=== PATIENT | male | born 2000 | race African-American/Black ===

== ENCOUNTER 2021-07-20 19:24 | Emergency (ER) | payer OTHER, SELFPAY ==
--- NOTE | ~2021-07-20 | CT_ITS ---
EXAMINATION: CT abdomen pelvis w con DATE: 07/20/2021 22:09 INDICATION: Abdominal pain for 3 days TECHNIQUE: Computed tomography (CT) of the abdomen and pelvis was performed with 100 CC Omnipaque 350 intravenous contrast. Automated exposure control and iterative reconstruction technique were employe d. Exam dose: 229.65 mGy-cm total exam DLP. COMPARISON: None. FINDINGS: The lung bases are clear. Normal heart size. No pericardial or pleural effusion. The gallbladder is contracted. No hepatic, splenic, pancreatic, and adrenal or renal space-occupying mass lesion. No bile duct or pancreatic duct dilatation. No urinary tract calculus or hydroureteronephrosis is detected. The urinary bladder is unremarkable. Normal caliber of the abdominal aorta. No intraperitoneal or retroperitoneal or pelvic mass lesion or adenopathy or ascites. The stomach is distended with fluid and foodstuff. Normal appendix. No bowel obstruction or intraperi toneal free air. Included skeletal structures are unremarkable. IMPRESSION: No significant abnormality Reviewed, dictated and finalized at [facility]. Reviewed, dictated and finalized at [facility]. IMPRESSION: No significant abnormality
[2021-07-20 19:28] VITALS: BP 141/88; PULSE 77; RESP 18; TEMP 37.2; O2SAT 99
[2021-07-20 20:36] LABS: Basophils Percent Auto 0.4 % (0.2-1.2); Eosinophils Absolute Auto 0.2 K/mm3 (0-0.3); Eosinophils Percent Auto 3.9 % (0-4.4); Hematocrit 46.3 % (42.0-52.0); Hemoglobin 14.8 g/dL (14.0-18.0); Immature Granulocyte Absolute 0.01 K/mm3 (0.00-0.031); Immature Granulocyte Percent A 0.2 % (0-0.5); Lymphocytes Absolute Auto 2.51 K/mm3 (0.9-3.2); Lymphocytes Percent Auto 47.2 % (18.3-44.2); Mean Corpuscular Hemoglobin 27.4 pg (26-34); Mean Corpuscular Volume 85.6 fl (80-100); Mean Platelet Volume 9.9 fl (7.4-10.4); Monocytes Absolute Auto 0.4 K/mm3 (0.1-0.6); Monocytes Percent Auto 7.3 % (2.6-8.5); Neutrophils Absolute Auto 2.2 K/mm3 (1.3-6.7); Platelet Count Result 281 k/mm3 (150-375); Red Blood Count 5.41 M/mm3 (4.6-6.20); Red Cell Distribution Width 13.2 % (11.5-14.5); White Blood Count 5.3 K/mm3 (4.5-10.0)
[2021-07-20 20:46] LABS: Alanine Aminotransferase 20 U/L (4-50); Albumin Level 4.5 g/dL (3.5-5.1); Alkaline Phosphatase 92 U/L (38-126); Anion Gap 9 mmol/L (8-16); Aspartate Amino Transferase 45 U/L (17-59); Bilirubin,Total 0.2 mg/dL (0.2-1.3); Blood Urea Nitrogen 6 mg/dL (9-20); Calcium 8.2 mg/dL (8.4-10.2); Carbon Dioxide 24 mmol/L (22-30); Chloride 106 mmol/L (98-107); Estimated CRCL calculation 99 ml/min; Estimated Glomerular Filt Rate > 60; Glucose 130 mg/dL (65-110); Lipase 88 U/L (23-300); Sodium 139 mmol/L (137-145)
--- NOTE | 2021-07-20 21:39 | ED.GENADULT ---
HPI - General Adult General Chief complaint: Abdominal Pain Stated complaint: Abd pain Time Seen by Provider: 07/20/21 20:46 Source: RN notes reviewed History of Present Illness HPI narrative: Patient presents emergency room from home for abdominal pain. Patient states pain began approximately 3 days ago the pain was initially located diffusely throughout the abdomen described as crampy is now located in the lower abdomen described as sharp and stabbing. States nothing makes pain better or worse. He denies any fevers or chills, chest pain, shortness of breath, nausea, vomiting, diarrhea or any other symptoms. States he not taking medication for the pain today Related Data Allergies Allergy/AdvReac Type Severity Reaction Status Date / Time pollen extracts Allergy Unknown Verified 07/20/21 19:25 Review of Systems Review of Systems: Gen.: Denies fevers or chills ENT: Denies congestion Respiratory: Denies shortness of breath or cough CV: Denies chest pain or palpitations GI: See HPI Musculoskeletal: Denies back pain or muscle pain Neuro: Denies numbness, tingling, weakness or focal weakness Skin: Denies rash Except as documented, all other systems reviewed and negative [facility] Past Medical History Medical History (Updated 07/20/21 @ 21:40 by Dheeraj Castillo DO) Patient denies significant medical history Social History Social History (Updated 07/20/21 @ 21:40 by Dheeraj Castillo DO) Smoking status: Never smoker Exam Narrative: APPEARANCE: No acute distress, nontoxic, resting in bed HEENT: Normocephalic, atraumatic, OMM RESPIRATORY: No respiratory distress, clear to auscultation bilaterally with no rhonchi wheezing or rales CARDIOVASCULAR: RRR s murmur ABDOMINAL: Soft nondistended tender palpation right lower quadrant and left lower quadrant no tenderness right upper quadrant left upper quadrant no rebound or guarding MUSCULOSKELETAl: Moves all extremities. No clubbing, cyanosis or edema. NEURO: Awake and alert. Following commands, speech normal, no focal deficits SKIN:: Warm, dry. Normal Color PSYCHIATRIC: Normal affect/mood Course Course Emergency Course: Patient states that they are feeling much better at this time. States abdominal pain has resolved. Repeat abdominal exam shows the patient's abdomen to be soft and nontender. Discussed with patient results of workup and diagnosis. Discussed need for follow-up with primary care physician, reasons to return to the emergency department in proper use of medication. Patient understands and agrees to current treatment plan Vital Signs Vital signs: Vital Signs Temperature 99 F 07/20/21 19:28 Pulse Rate 77 07/20/21 19:28 Respiratory Rate 18 07/20/21 19:28 Blood Pressure 141/88 H 07/20/21 19:28 Pulse Oximetry 99 07/20/21 19:28 Temperature 99 F 07/20/21 19:28 Pulse Rate 77 07/20/21 19:28 Respiratory Rate 18 07/20/21 19:28 Blood Pressure 141/88 H 07/20/21 19:28 Pulse Oximetry 99 07/20/21 19:28 Medical Decision Making MDM Narrative Medical decision making narrative: Patient's abdomen is soft without significant pain or signs of surgical abdomen on serial exams. Lab and x-ray evaluations are reviewed and patient is felt to be a reasonable candidate for outpatient management. Patient was instructed as to limitations of x-ray and laboratory evaluation and encouraged to return to ED or primary physician for repeat exam in 12 hours if continued or worsening pain Vital Signs Vital Signs: Vital Signs Temperature 99 F 07/20/21 19:28 Pulse Rate 77 07/20/21 19:28 Respiratory Rate 18 07/20/21 19:28 Blood Pressure 141/88 H 07/20/21 19:28 Pulse Oximetry 99 07/20/21 19:28 Temperature 99 F 07/20/21 19:28 Pulse Rate 77 07/20/21 19:28 Respiratory Rate 18 07/20/21 19:28 Blood Pressure 141/88 H 07/20/21 19:28 Pulse Oximetry 99 07/20/21 19:28 Lab Data Result diagrams: 07/20/21 20:29 07/20/21 20:
[2021-07-20 22:13] LABS: Appearance Urine Clear (Clear); Bilirubin Urine Negative (Negative); Blood Urine Negative (Negative); Color Urine Yellow (Yellow); Glucose Urine UA Negative (Negative); Ketones Urine Negative (Negative); Leukocyte Esterase Ur Negative LEU/UL (Negative); Nitrate Urine Negative (Negative); Protein Urine Negative (Negative); Specific Grav Ur 1.015 (1.001-1.035); Urobilinogen Urine 0.2 mg/dL (<2.0)
[2021-07-20 22:18] LABS: Add Urine Microscopic? NO; RBC Urine 0-2 /hpf (0-2); WBC Urine 0-3 /hpf
[2021-07-20] MEDS: KETOROLAC 30 MG/ML VIAL (*BKC) IV PUSH (22:24)
[2021-07-20] MEDS: SODIUM CHLORIDE 0.9% IV 1,000 ML 999 ML IV CONT (22:24)
[2021-07-20 23:29] VITALS: BP 128/78; PULSE 68; RESP 16; O2SAT 98
--- NOTE | 2021-07-25 19:32 | PC.NURSE ---
Normal Saline stopped at 7595
== END 2021-07-20 23:31 | disposition home or self-care (01) ==
PROVIDERS: Emergency Medicine; Emergency Provider Emergency Medicine; PCP Internal Medicine Gastroenterology
DX: R10.30 Lower abdominal pain, unspecified (principal)
CPT/HCPCS: 36415; 74177; 80053; 81003; 83690; 85025; 96361; 96374; 99284; J1885; J7030; Q9967

== ENCOUNTER 2022-07-27 08:05 | Emergency (ER) | payer OTHER, SELFPAY ==
--- NOTE | ~2022-07-27 | XR_ITS ---
XR foot LT min 3V 07/27/2022 08:53 INDICATION: Left foot pain PROCEDURE: 4 views left foot COMPARISON: No prior studies for comparison. FINDINGS: Fracture, dislocation or subluxation is not identified. Lisfranc joint is intact. The soft tissues appear within normal limits. No foreign bodies are identified. IMPRESSION: 1: NO ACUTE BONE OR JOINT ABNORMALITY IDENTIFIED. Reviewed, dictated and finalized at [facility].
[2022-07-27 08:08] VITALS: BP 133/76; PULSE 75; RESP 16; TEMP 36.7; O2SAT 100
[2022-07-27] MEDS: ACETAMINOPHEN 500 MG TABLET 1000 MG PO (08:46)
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
[2022-07-27 09:19] VITALS: BP 142/78; PULSE 64; RESP 12; O2SAT 98
== END 2022-07-27 09:20 | disposition home or self-care (01) ==
PROVIDERS: Emergency Provider Emergency Medicine; PCP Internal Medicine Gastroenterology
DX: S06.0X0A Concussion without loss of consciousness, initial encounter (principal); Y00.XXXA Assault by blunt object, initial encounter
CPT/HCPCS: 73630; 99282; A9270

== ENCOUNTER 2022-11-09 20:02 | Emergency (ER) | payer OTHER, SELFPAY ==
--- NOTE | ~2022-11-09 | CT_ITS ---
EXAMINATION: CT brain wo con INDICATION: Head injury COMPARISON: None TECHNIQUE: Standard unenhanced head CT. The dose-length product (DLP) was 605.33 mGy-cm. The mA was a djusted according to patient size. Iterative reconstruction technique was employed. FINDINGS: There is no intracranial hemorrhage, acute infarction, or abnormal mass lesion. The ventric les are normal. There is no abnormal mass effect or midline shift. The gilman-white matter differentiat ion is normal. The basal cisterns are patent. The orbits are normal. There is a 9 mm polyp or mucous retention cyst in the right maxillary sinus. IMPRESSION: 1. No acute intracranial abnormality. Reviewed, dictated and finalized at [facility].
[2022-11-09 20:06] VITALS: BP 144/76; PULSE 68; RESP 15; TEMP 36.9; O2SAT 98
--- NOTE | 2022-11-09 20:45 | ED.HEATRA ---
HPI - Head Injury General Chief complaint: Head Injury Stated complaint: headache/injury Time Seen by Provider: 11/09/22 20:09 History of Present Illness HPI Narrative: 22-year-old male with history of concussion 2 months ago was playing basketball few days ago and hit his head, no loss of consciousness, no nausea or vomiting, he has had a persistent headache since then and also more trouble sleeping. Related Data Allergies Allergy/AdvReac Type Severity Reaction Status Date / Time pollen extracts Allergy Unknown Verified 11/09/22 20:08 Review of Systems Review of Systems: CONST: No fever. HEENT: No sore throat C/V: No chest pain RESP: No cough GI: No nausea or vomiting : No dysuria. M/S: No joint pain. SKIN: No rash. NEURO: Headache without focal numbness or weakness PSYCH: [No depression] [facility] Past Medical History Medical History (Updated 11/09/22 @ 20:46 by Emerald Mesa MD) Patient denies significant medical history Social History Social History (Updated 07/20/21 @ 21:40 by Dheeraj Castillo DO) Smoking status: Never smoker Exam Narrative: EXAMINATION OF ORGAN SYSTEMS/BODY AREAS: Constitutional: Vital signs per nursing GENERAL:[No acute distress, non-toxic appearing.] HEAD: Normal with no signs of head trauma. EYES: EOMI, conjunctiva normal ENT: Hearing grossly intact LUNGS: Nonlabored breathing. HEART: [Regular rate and rhythm] ABD: [Soft], [nontender to palpation] EXT: Normal range of motion SKIN: [No rashes or lesions.] NEURO: [Alert and oriented x 3. No gross focal sensory or strength deficits.] Ambulating with normal steady gait PSYCH: Normal affect Course Vital Signs Vital signs: Vital Signs Temperature 98.4 F 11/09/22 20:06 Pulse Rate 68 11/09/22 20:06 Respiratory Rate 15 11/09/22 20:06 Blood Pressure 144/76 H 11/09/22 20:06 Pulse Oximetry 98 11/09/22 20:06 Oxygen Delivery Room Air 11/09/22 20:06 Temperature 98.4 F 11/09/22 20:06 Pulse Rate 68 11/09/22 20:06 Respiratory Rate 15 11/09/22 20:06 Blood Pressure 144/76 H 11/09/22 20:06 Pulse Oximetry 98 11/09/22 20:06 Oxygen Delivery Room Air 11/09/22 20:06 MDM - Head Injury MDM Narrative Medical decision making narrative: 22-year-old male presenting after head injury, he is well-appearing here, no indication for CT per [place] rules which I discussed with patient but he would like to have a CT head for reassurance so this is ordered. It does not show any acute bleed on my own independent interpretation, I have discussed concussion precautions with the patient and the need to avoid any head injury and provided follow-up to primary. Stable for discharge at this time. Discharge Plan Discharge Clinical Impression: Postconcussion syndrome Patient Disposition: Home, Self-Care Condition: Stable Instructions: Antibiotic Form, Concussion (ED), Post Concussion Syndrome (ED) Additional Instructions: Please follow up with your doctor; you can always return for any further issues. You can continue taking ibuprofen and Tylenol as needed for headache. Prescriptions: No Action famotidine [Pepcid] 20 mg tablet 20 mg PO DAILY Qty: 14 0RF ibuprofen [IBU] 600 mg tablet 600 mg PO Q6H PRN (Reason: pain) Qty: 20 0RF Follow-up/Referrals: Robson,Mariano Cadena MD [Primary Care Provider] - 2 Days
[2022-11-09 21:00] VITALS: BP 125/65; PULSE 65; RESP 14; O2SAT 99
== END 2022-11-09 21:01 | disposition home or self-care (01) ==
PROVIDERS: Emergency Provider Emergency Medicine; PCP Internal Medicine Gastroenterology
DX: G44.309 Post-traumatic headache, unspecified, not intractable (principal); F07.81 Postconcussional syndrome
CPT/HCPCS: 70450; 99284

== ENCOUNTER 2022-11-28 19:59 | Emergency (ER) | payer OTHER, SELFPAY ==
[2022-11-28 20:01] VITALS: BP 131/62; PULSE 63; RESP 14; TEMP 36.7; O2SAT 99
[2022-11-28] MEDS: CYCLOBENZAPRINE HCL 10 MG TABLET PO (21:26)
[2022-11-28] MEDS: ACETAMINOPHEN 500 MG TABLET 1000 MG PO (21:26)
--- NOTE | 2022-11-28 21:44 | ED.GENADULT ---
HPI - General Adult General Chief complaint: Neck Pain/Injury Stated complaint: right side neck pain Time Seen by Provider: 11/28/22 20:40 History of Present Illness HPI narrative: 22-year-old male presents to the emergency department for evaluation of right shoulder and right lateral neck pain. Patient reports symptoms started approximately 3 days ago and was bothering him when he woke up. Patient has been taking ibuprofen for pain control but states this has not been helping significantly. Patient reports pain that does radiate down the right arm but denies any associated numbness or weakness. Patient denies any specific falls or injuries. Related Data Allergies Allergy/AdvReac Type Severity Reaction Status Date / Time pollen extracts Allergy Unknown Verified 11/09/22 20:08 Review of Systems Review of Systems: All systems reviewed & are unremarkable except as noted in HPI and below PMFSH Past Medical History Medical History (Updated 11/29/22 @ 00:05 by Hamzah León) Patient denies significant medical history Social History Social History (Updated 07/20/21 @ 21:40 by Dheeraj Castillo DO) Smoking status: Never smoker Exam Narrative: APPEARANCE: Well appearing, no pain, no distress, well-nourished. HEAD: normocephalic, atraumatic. EYES: PERRLA/EOMI, conjunctivae clear. NOSE: Normal no drainage NECK: Supple. No adenopathy, no masses. RESPIRATORY: Airway patent, respirations nonlabored. Clear to auscultation bilaterally, no rales, rhonchi, wheezing. CARDIOVASCULAR: Regular rate and rhythm without murmurs rubs or gallops. ABDOMINAL: Soft, nontender, nondistended, normal bowel sounds MUSCULOSKELETAL: Trapezius tenderness to right lateral neck with limited range of motion when turning to the right full range of motion when turning to the left NEURO: Alert. Cranial nerves II through XII intact. Grossly intact SKIN: Warm, dry. Normal Color Course Course Emergency Course: Patient was treated as a muscle strain provided Tylenol and Flexeril in the emergency department. Patient has been taking prescription ibuprofen for pain control. Patient was also provided a prescription for Flexeril for home. Patient was updated on the plan for treatment at home and the anticipated illness progression. Patient was updated on reasons to return to the emergency department and on the importance of follow-up with his primary care physician Vital Signs Vital signs: Vital Signs Temperature 98.1 F 11/28/22 20:01 Pulse Rate 63 11/28/22 20:01 Respiratory Rate 14 11/28/22 20:01 Blood Pressure 131/62 11/28/22 20:01 Pulse Oximetry 99 11/28/22 20:01 Oxygen Delivery Room Air 11/28/22 20:01 Temperature 98.3 F 11/28/22 21:56 Pulse Rate 56 L 11/28/22 21:56 Respiratory Rate 15 11/28/22 21:56 Blood Pressure 130/69 11/28/22 21:56 Pulse Oximetry 100 11/28/22 21:56 Oxygen Delivery Room Air 11/28/22 20:01 Medical Decision Making Differential Diagnosis Differential Diagnosis: Muscular strain torticollis, trapezius strain right neck Vital Signs Vital Signs: Vital Signs Temperature 98.1 F 11/28/22 20:01 Pulse Rate 63 11/28/22 20:01 Respiratory Rate 14 11/28/22 20:01 Blood Pressure 131/62 11/28/22 20:01 Pulse Oximetry 99 11/28/22 20:01 Oxygen Delivery Room Air 11/28/22 20:01 Temperature 98.3 F 11/28/22 21:56 Pulse Rate 56 L 11/28/22 21:56 Respiratory Rate 15 11/28/22 21:56 Blood Pressure 130/69 11/28/22 21:56 Pulse Oximetry 100 11/28/22 21:56 Oxygen Delivery Room Air 11/28/22 20:01 Discharge Plan Discharge Clinical Impression: Muscle strain Patient Disposition: Home, Self-Care Condition: Stable Instructions: Antibiotic Form, Neck Pain (ED) Additional Instructions: Scheduled ibuprofen for pain control. Flexeril for muscle spasm. Tylenol/acetaminophen as needed for additional pain control. Have close follow-up with your
[2022-11-28 21:56] VITALS: BP 130/69; PULSE 56; RESP 15; TEMP 36.8; O2SAT 100
== END 2022-11-28 21:57 | disposition home or self-care (01) ==
PROVIDERS: Emergency Provider Emergency Medicine; PCP Internal Medicine Gastroenterology
DX: S16.1XXA Strain of muscle, fascia and tendon at neck level, initial encounter (principal); X58.XXXA Exposure to other specified factors, initial encounter
CPT/HCPCS: 99283; A9270

== ENCOUNTER 2023-03-12 05:06 | Emergency (ER) | payer OTHER, SELFPAY ==
--- NOTE | ~2023-03-12 | XR_ITS ---
Clinical Indication: Cough, shortness of breath PA and lateral views of the chest: Comparison: None Findings: The lungs are clear, without evidence of focal consolidation or pleural effusion. Cardiome diastinal silhouette is within normal limits. Bones and soft tissues are unremarkable. Impression: Normal chest. Reviewed, dictated and finalized at [facility]. SPINNER Impression: Normal chest.
[2023-03-12 05:09] VITALS: BP 142/76; PULSE 56; RESP 15; TEMP 36.5; O2SAT 100
[2023-03-12 05:53] LABS: Influenza A QL RT-PCR Negative (Negative); Influenza B QL RT-PCR Negative (Negative); RSV RNA, RT-PCR Negative (Negative); SARS-CoV-2 RNA PCR Negative (Negative)
--- NOTE | 2023-03-12 05:59 | ED.URI ---
HPI - URI/Sore Throat General Chief Complaint: Upper Respiratory Infection Stated Complaint: cough Time Seen by Provider: 03/12/23 05:16 History of Present Illness HPI Narrative: Patient is a 22-year-old male presenting with URI symptoms. Patient states that for the last several days he has had a productive cough stool shortness of breath that feels worse when he lays down. States that it feels better if he sits up. He denies any pain. States that his younger brother has had similar symptoms. No fevers, chest pain, abdominal pain, nausea vomiting, leg swelling. No further complaints. Related Data Allergies Allergy/AdvReac Type Severity Reaction Status Date / Time pollen extracts Allergy Unknown Verified 03/12/23 05:11 Review of Systems Review of Systems: All systems reviewed & are unremarkable except as noted in HPI and below PMFSH Past Medical History Medical History Patient denies significant medical history Social History Social History Smoking status: Never smoker Exam Narrative: GENERAL: Well-appearing, In no acute distress, pleasant cooperative HEAD: Normocephalic, atraumatic. EYES: PERRLA and EOMI. ENT: grossly unremarkable NECK: Supple. CHEST: Clear to auscultation. No respiratory distress. HEART: Regular rate and rhythm EXTREMITIES: Normal range of motion. No edema. SKIN: Warm, dry, no rash. NEURO: Alert and oriented x3. PSYCH: Normal mood and affect. Course Vital Signs Vital signs: Vital Signs Temperature 97.7 F 03/12/23 05:09 Pulse Rate 56 L 03/12/23 05:09 Respiratory Rate 15 03/12/23 05:09 Blood Pressure 142/76 H 03/12/23 05:09 Pulse Oximetry 100 03/12/23 05:09 Oxygen Delivery Room Air 03/12/23 05:09 Temperature 97.7 F 03/12/23 05:09 Pulse Rate 56 L 03/12/23 05:09 Respiratory Rate 15 03/12/23 05:09 Blood Pressure 142/76 H 03/12/23 05:09 Pulse Oximetry 100 03/12/23 05:09 Oxygen Delivery Room Air 03/12/23 05:12 MDM - URI/Sore Throat MDM Narrative Medical decision making narrative: 22-year-old male presenting with URI symptoms. Vitals are stable. Exam is unremarkable. Patient is negative for flu, RSV, COVID. Chest x-ray shows no acute abnormalities. Patient is safe for outpatient management. Will prescribe Tessalon Perles for his cough. Advised close PCP follow-up. Appropriate return precautions given. Patient is agreeable with this plan. Discharged in stable condition. Differential Diagnosis Differential diagnosis: Likely upper respiratory infection, viral infection and influenza Medical Records Attestation: I reviewed the patient's medical records. Lab Data Attestation: I reviewed the patient's lab results. Labs: Lab Results 03/12/23 Range/Units 05:14 Influenza A (RT-PCR) Negative (Negative) Influenza B (RT-PCR) Negative (Negative) RSV (RT-PCR) Negative (Negative) SARS-CoV-2 RNA (RT-PCR) Negative (Negative) Imaging Data Radiologist's impression: ITS Impressions Chest X-Ray 03/12/23 06:11 Impression: Normal chest. Critical Care Time Critical Care Time Critical Care Time: No Discharge Plan Discharge Clinical Impression: Viral URI Patient Disposition: Home, Self-Care Condition: Stable Instructions: Antibiotic Form, Viral Syndrome (ED) Additional Instructions: You are negative for COVID-19, influenza, and RSV. Your chest x-ray shows no pneumonia. We have prescribed a cough medicine to help with your symptoms. Please follow-up closely with primary care. If your symptoms worsen or other concerning symptoms arise, please return to the ER. Prescriptions: New benzonatate 100 mg capsule 100 mg PO TID PRN (Reason: cough) Qty: 20 0RF No Action cyclobenzaprine 10 mg tablet 10 mg PO BID PRN (Reason: muscle spasm) Qty:
== END 2023-03-12 06:49 | disposition home or self-care (01) ==
PROVIDERS: Emergency Provider Emergency Medicine; PCP Internal Medicine Gastroenterology
DX: J06.9 Acute upper respiratory infection, unspecified (principal); Z20.822 Contact with and (suspected) exposure to COVID-19
CPT/HCPCS: 71046; 87637; 99283

== ENCOUNTER 2024-01-28 05:54 | Emergency (ER) | payer OTHER, SELFPAY ==
[2024-01-28] VITALS (10 sets, daily range): BP systolic 128–133; BP diastolic 78–85; PULSE 54–71; RESP 11–18; TEMP 36.4–36.6; O2SAT 99–100
--- NOTE | ~2024-01-28 | XR_ITS ---
EXAMINATION: XR chest 1V portable DATE: 01/28/2024 06:20 INDICATION: Chest pain. TECHNIQUE: A single frontal view of the chest was obtained. COMPARISON: Chest 2 views 03/12/2023, CT abdomen and pelvis 07/20/2021 FINDINGS: There is no pneumonia, pleural effusion, or pneumothorax. The heart size is normal. IMPRESSION: 1. No acute cardiopulmonary disease. Reviewed, dictated and finalized at location A.
--- NOTE | 2024-01-28 06:01 | ECG_ITS ---
Test Date: 2024-01-28 06:03:12 Measurements Intervals Combs Rate: 54 P: 21 DE: 180 QRS: 34 QRSD: 92 T: 18 QT: 409 QTc: 388 Interpretive Statements SINUS BRADYCARDIA WITH SINUS ARRHYTHMIA No previous ECG available for comparison Electronically Signed On 01-28-2024 09:43:16 CDT by Chalino Morton M.D.
--- NOTE | 2024-01-28 06:08 | PC.NURSE ---
ok to not give aspirin per edp
--- NOTE | 2024-01-28 06:10 | ED.CHESTPAIN ---
HPI - Chest Pain General Chief Complaint: Chest Pain Stated Complaint: chest pain Time Seen by Provider: 01/28/24 05:56 History of Present Illness HPI narrative: Patient is a 23-year-old male who presents to the emergency department this morning complaining of substernal chest pain for the past 2 weeks. Patient states that it has been intermittent but throughout the past week he noticed that it was more persistent. When asked if it is worse during the day or night he says both. Patient states that whenever he feels the chest if he extends his arms upward and stretches his chest he feels better. Patient denies any history of cardiovascular disease and denies any family history of cardiovascular disease. Denies any recent illness/URI, denies any fevers or chills, denies any nausea vomiting or abdominal pain. Denies any history of acid reflux. No additional symptoms or concerns at this time. Related Data Allergies Allergy/AdvReac Type Severity Reaction Status Date / Time pollen extracts Allergy Unknown Verified 01/28/24 05:54 Review of Systems Review of Systems: All systems are reviewed and are negative unless stated otherwise in the HPI. [facility] Past Medical History Medical History Patient denies significant medical history Social History Social History Smoking status: Never smoker Exam Narrative: General: Alert, awake, afebrile, in no acute distress. HEENT: PERRL, no rhinorrhea, no post nasal drip, oropharynx clear. Cardiovascular: Regular rate and rhythm, no murmurs, rubs or gallops, no peripheral edema. Respiratory: Clear to auscultation bilaterally, no tachypnea, no wheezing, no rhonchi, no rubs, no respiratory distress. Abdomen: Soft, nontender, nondistended, no rebound, no guarding, no peritoneal signs. Musculoskeletal: No joint swelling or deformity, normal muscle tone. Skin: No rashes or petechia, no signs of infection. Neurological: Alert and oriented to person, place, and time. Follows all commands. No focal deficits, speech is clear and fluent. Course Vital Signs Vital signs: Vital Signs Temperature 97.9 F 01/28/24 05:57 Pulse Rate 62 01/28/24 05:57 Respiratory Rate 18 01/28/24 05:57 Blood Pressure 132/85 01/28/24 05:57 Pulse Oximetry 100 01/28/24 05:57 Oxygen Delivery Room Air 01/28/24 05:57 Temperature 97.9 F 01/28/24 05:57 Pulse Rate 62 01/28/24 06:01 Respiratory Rate 18 01/28/24 05:57 Blood Pressure 132/85 01/28/24 05:57 Pulse Oximetry 100 01/28/24 05:57 Oxygen Delivery Room Air 01/28/24 05:57 MDM - Chest Pain MDM Narrative Medical decision making narrative: The patient was evaluated by myself in the emergency department. History is obtained from patient who is an independent historian and physical exam was performed. External medical records were reviewed at this time. IV was established and pertinent tests were ordered. EKG was obtained which revealed sinus bradycardia at a rate of 54 beats per minute, no evidence of acute ischemia. EKG was independently interpreted by me and is currently pending official cardiology read. Laboratory results obtained revealing no acute process. Troponin negative. Imaging studies obtained included CXR which was independently interpreted by me revealing no acute cardiopulmonary process, which is pending final radiology interpretation. Differential diagnosis considerations include anxiety, acute stress reaction, infectious process such as pneumonia, acid reflux, peptic ulcer disease. Comorbidities impacting this visit include none. I have evaluated and discussed social determinants of health with the patient that could potentially impact subsequent diagnosis and treatment plans. On repeat assessment of the patient, reevaluation revealed that the patient is doing well and is in no acute di
[2024-01-28 06:14] LABS: Basophils Percent Auto 0.6 % (0.2-1.2); Eosinophils Absolute Auto 0.3 K/mm3 (0-0.3); Eosinophils Percent Auto 5.6 % (0-4.4); Hematocrit 46.2 % (42.0-52.0); Hemoglobin 14.9 g/dL (14.0-18.0); Immature Granulocyte Absolute 0.01 K/mm3 (0.00-0.031); Immature Granulocyte Percent A 0.2 % (0-0.5); Lymphocytes Absolute Auto 2.99 K/mm3 (0.9-3.2); Lymphocytes Percent Auto 57.4 % (18.3-44.2); Mean Corpuscular HGB Conc 32.3 g/dl (32-36); Mean Corpuscular Hemoglobin 27.7 pg (26-34); Mean Platelet Volume 10.1 fl (7.4-10.4); Monocytes Absolute Auto 0.4 K/mm3 (0.1-0.6); Monocytes Percent Auto 8.4 % (2.6-8.5); Neutrophils Absolute Auto 1.5 K/mm3 (1.3-6.7); Neutrophils Percent Auto 27.8 % (45.5-73.1); Platelet Count Result 294 k/mm3 (150-375); Red Blood Count 5.37 M/mm3 (4.6-6.20); Red Cell Distribution Width 13.2 % (11.5-14.5); White Blood Count 5.2 K/mm3 (4.5-10.0)
[2024-01-28 06:27] LABS: Alanine Aminotransferase 14 U/L (6-50); Albumin Level 4.2 g/dL (3.5-5.1); Alkaline Phosphatase 71 U/L (38-126); Anion Gap 6 mmol/L (4-12); Aspartate Amino Transferase 22 U/L (17-59); Bilirubin,Total 0.4 mg/dL (0.2-1.3); Blood Urea Nitrogen 10 mg/dL (9-20); Calcium 8.4 mg/dL (8.4-10.2); Carbon Dioxide 29 mmol/L (22-30); Chloride 105 mmol/L (98-107); Estimated CRCL calculation 88 ml/min; Estimated Glomerular Filt Rate > 60; Glucose 97 mg/dL (65-110); Lipase 74 U/L (23-300); Potassium 3.7 mmol/L (3.4-5.0); Sodium 140 mmol/L (137-145)
[2024-01-28 06:38] LABS: Troponin I < 0.012 ng/mL (0.000-0.034)
[2024-01-28 06:55] LABS: Prothrombin Time 13.3 Seconds (11.1-14.7)
[2024-01-28 06:56] LABS: Partial Thromboplastin Time 28.8 Seconds (22.3-36.8)
== END 2024-01-28 06:53 | disposition home or self-care (01) ==
PROVIDERS: Emergency Provider Emergency Medicine; PCP Internal Medicine Gastroenterology
DX: R07.2 Precordial pain (principal); R00.1 Bradycardia, unspecified
CPT/HCPCS: 36415; 71045; 80053; 83690; 84484; 85025; 85610; 85730; 93005; 99284